=== PATIENT | female | born 1985 | race Caucasian/White ===

== ENCOUNTER 2016-07-14 08:05 | Day surgery (SDC) | payer OTHER ==
[~2016-07-14] VITALS: Ht 157.5 cm; Wt 84.3 kg
[2016-07-14] VITALS (7 sets, daily range): BP systolic 102–131; BP diastolic 48–67; PULSE 70–84; RESP 16–23; O2SAT 97–100
[2016-07-14] MEDS ORDERED: Lidocaine PF 1% 30 mL Inj ONE (08:06)
[2016-07-14] MEDS ORDERED: Propofol 10,000 mCg/mL 20 mL Inj ONE (08:06)
[2016-07-14] MEDS ORDERED: MetoCLOpramide 5 mg/mL 2 mL Inj ONE (08:06)
[2016-07-14] MEDS ORDERED: EPHEDrine/NS 5 mg/mL 5 mL Syringe ONE (08:06)
[2016-07-14] MEDS ORDERED: Dexamethasone 4 mg/mL Inj ONE (08:06)
[2016-07-14] MEDS ORDERED: Ondansetron 2 mg/mL 2 mL Inj ONE (08:06)
[2016-07-14] MEDS ORDERED: fentaNYL-PF 50 mCg/mL 2 mL Inj ONE (08:06)
[2016-07-14] MEDS: Lactated Ringer's 1,000 ML IV SCH ×2 (08:24→11:32)
[2016-07-14] MEDS ORDERED: Lactated Ringer's 1,000 ML IV SCH (10:51)
[2016-07-14] MEDS ORDERED: Lactated Ringer's 500 ML IV PRN (10:51)
[2016-07-14] MEDS ORDERED: MetoCLOpramide 5 mg/mL 2 mL Inj IVPUSH PRN (10:55)
[2016-07-14] MEDS ORDERED: Labetalol 5 mg/mL 4 mL Inj IV PRN (10:55)
[2016-07-14] MEDS ORDERED: Dexamethasone 4 mg/mL Inj IVPUSH PRN (10:55)
[2016-07-14] MEDS ORDERED: Atropine 0.4 mg/mL Inj IVPUSH PRN (10:55)
[2016-07-14] MEDS ORDERED: fentaNYL-PF 50 mCg/mL 2 mL Inj IVPUSH PRN (10:55)
[2016-07-14] MEDS ORDERED: Phenylephrine 10,000 mCg/mL Inj IVPUSH PRN (10:55)
[2016-07-14] MEDS ORDERED: HYDROmorphone 1 mg/mL Inj IVPUSH PRN (10:55)
[2016-07-14] MEDS ORDERED: Ondansetron 2 mg/mL 2 mL Inj IVPUSH PRN (10:55)
[2016-07-14] MEDS ORDERED: EPHEDrine Sulfate 50 mg/mL Inj IVPUSH PRN (10:55)
--- NOTE | 2016-07-14 11:21 | PCM.HPANE ---
Patient Data Date of Service: Jul 14, 2016 Surgeon Admitting Provider: Attending Provider:Reba Sparks MD Primary Care Physician:Abel Other Provider:Denise Heart Anesthesia Reason for Visit Vaginal Cyst Ht/WT & BMI Height (Feet): 5 Height (Inches): 2 Weight (Kilograms): 84.3 Body Mass Index 34.00 Allergies Coded Allergies: No Known Allergies (Verified Allergy, Unknown, 02/22/14) Past Anesthesia History Anesthesia History: Denies:: Abnormal Airway, Anesthesia Reactions (epidural for delivery), Difficult Intubation, Fam Anesthesia Reaction Diabetes History Hx Diabetes?: No MRSA MRSA: No Medications Hypertension Medication: No Home Meds Incl Beta Aryan: No Discontinued Reported Medications Iron &Iron Asp Gly/Fa/Mv,Min38 (Iron Tablet)1 Each Tablet1 Each PO DAILY 01/27/13 Discontinued Scripts Docusate Sodium (Colace)100 Mg Veyscik131 Mg PO DAILY #30 CAPSULE Prov:BERTHA SHELBY DO 03/18/16 Ibuprofen 600 Mg Xytnwt661 Mg PO Q6H PRN For Mild Pain #40 TABLET Prov:BERTHA SHELBY DO 03/18/16 Ciprofloxacin 500 Mg/5 Ml Helena.mc.fkd571 Mg PO BID 5 Days Ref 0 Prov:Joss Holt DO 02/23/14 History History of ENT Problems?: No HEENT History: Denies:: Abnormal Airway Cataracts Difficult Intubation Dysphagia Glaucoma Hearing Problem Sinus Problem TMJ Teeth Condition: Missing Teeth Hx of Heart Problems?: No Cardiovascular History: Denies:: AICD Abdominal Aortic Aneurism Atrial Fibrillation Edema Heart Murmur Hypertension Irregular Heartbeat Pacemaker Peripheral Vascular Rheumatic Fever Hx of Respiratory Problem?: No Respiratory History: Denies:: Asthma COPD Emphysema Oxygen Administration Pneumonia Pulmonary Embolism Tuberculosis Use of C-PAP Machine Use of Inhalers / NEBS Hx Neurologic Problems?: No Neurological History: Denies:: CVA Dizziness Headaches Multiple Sclerosis Parkinson's Disease Seizures TIA Hx of GI Problems?: No Gastrointestinal History: Denies:: Cirrhosis Gall Bladder Disease Gastroesphageal Reflux Gastrointestinal Bleeding Heartburn Hepatitis Hiatal Hernia Liver Disease Rectal Bleeding Hx of Problems?: No Genitourinary History: Denies:: Kidney Stones Urinary Tract Infection HX of Peritoneal Dialysis: No Female Hx: Denies:: Currently (CURRENTLY 4 MO OLD) Skin History: Denies:: History Skin Disorders? Pressure Ulcers Hx Musculoskeletal Problems?: No Musculoskeletal History: Denies:: Back Injury Fibromyalgia Myasthenia Gravis Osteoarthritis Systemic Lupus Hx of Psycho/Social Problems?: No Psycho Social History: Denies:: Anxiety Hx Depression Hx Surgeries?: No Hx Any Other Health Problems?: Yes Other History: Denies:: Cancer Thyroid Disease History Blood Transfusions: Positive for:: Accept Blood Products? Denies:: Blood Transfusions Hx Diabetes: No Hx Alcohol Use: NoHx Substance Use: No Smoking Status: Never Smoker Have You Smoked inLast 12 mo: No Stop/Bang Treated for Sleep Apnea?: No Do You Have a CPAP Machine?: No S-Snoring: Do You Snore Loudly: No T-Tired: feel tired, fatigued: No O-Obsered: Observed not breath: No P-Blood Pressure: treated: No B- Body Mass Index > 35 kg/m2: No A- Age over 50: No N- Neck Large Circumference: No G- Gender Male: No SILVANO Total Score: 0 Risk Assessment Category Category 1A: Patient has history of documented sleep apnea, and HAS NOT received any narcotic, sedative or anesthesia administration during this stay. Category 1B: Patient has history of documented sleep apnea, and HAS received any narcotic , sedative or anesthesia administration during this stay Category 2: Patient has SUSPECTED Obstructive Sleep Apnea, and HAS received any narcotic , sedative or anesthesia administration during this stay. Category 3: Patient has SUSPECTED Obstructive Sleep Apnea and HAS NOT received narcotic, sedative or anesthesia administration during this stay. Category 4: Outpatient in Procedural Areas with known sleep apnea or who screen positive for High Risk via the STOP/BANG questionnaire. Exam Exam Vital Signs Vital Signs Date Time Temp Pulse Resp B/P Pulse Ox O2 Delivery O2 Flow Rate FiO2 07/14/16 08:40 36.1 70 16 102/53 97 Room Air General Appearance: Alert, Oriented X3, Cooperative HEENT/AIRWAY: MP 3, Neck Movement (OK, short TM distance) Lungs: Clear to Auscultation, Normal Air Movement Heart: Regular Rate/Rhythm, Normal S1, Normal S2 Meds/Labs/Diagnostics Admission Meds Current Medications Lactated Ringer's (Lr) 1,000 ml @ 120 mls/hr Q8H20M IV Last administered on t 08:24; Start 07/14/16 at 05:00; Stop 07/14/16 at 13:19 Plan Impression Patient chart reviewed, patient interviewed and anesthestic plan with risks, benefits, and alternatives discussed, and informed consent obtained. NPO Status: 07/13/16 ASA Physical Status: ASA2 Mod Systemic Disease (obesity) Anesthetic Plan: GA Bene/Risks/Altern/Consents: Yes HP Complete Prior to Induction: Yes Chino Lilly MD Jul 14, 2016 10:49
[2016-07-14] MEDS ORDERED: Lidocaine 1%-Epi 1:100,000 50 mL Inj INFILTRATE ONE (11:54)
[2016-07-14] MEDS ORDERED: Lidocaine 1%/Epi 1:100,000 30 mL MDV INFILTRATE ONE (11:54)
[2016-07-14] MEDS ORDERED: oxyCODONE-Acetamin 5-325 mg Tablet PO PRN (12:40)
[2016-07-14] MEDS ORDERED: HYDROcodone-APAP 5-325 mg Tablet PO PRN (12:40)
--- NOTE | 2016-07-14 12:40 | PCM.ANEP1 ---
Post Anesthesia Phase 1 PACU Phase 1 Assessment Date of Service: Jul 14, 2016 Vital Signs Vital Signs Date Time Temp Pulse Resp B/P Pulse Ox O2 Delivery O2 Flow Rate FiO2 07/14/16 12:35 84 16 120/48 100 Simple Mask 7 07/14/16 12:32 36.2 131/55 07/14/16 08:40 36.1 70 16 102/53 97 Room Air Anesthetic Administered: GA Level of Alertness: Sleepy, easy to arouse GREENE's with Equal Strength: Yes Pain: No Nausea or Vomiting: No Oxygen Delivery: Simple Mask Lungs: Normal Air Movement Chino Lilly MD Jul 14, 2016 12:40
--- NOTE | 2016-07-14 12:44 | PCM.DIGYN ---
Surgical Discharge Instruction Dates of Hospitalization Date of Hospital Admission Providers Admitting Physician: Primary Care Physician: Nopcp Attending Physician: Reba Sparks MD Diagnosis at Time of Discharge Diagnosis at time of discharge vaginal cystectomy vaginal cyst Post-operative diagnosis vaginal cyst vaginal cystectomy Problems: Dressing and Incisional Care Hygiene: May shower, NO bathtub, hot tub or whirlpool Additional Instructions Discharge Instructions please call office or go to ER if heavy vaginal bleeding, severe abdominal pain , foul smelling discharge, fever more than 100.4 No sex and nothing in vaginal for 2 weeks Follow Up Plan Follow Up Plan 2 weeks Follow-up Provider (F9): Reba Sparks MD Follow-up appointment: Weeks (2) Call your provider for: Fever, Chills, Shortness of breath, Heavy vaginal bleeding, Increasing pain Reba Sparks MD Jul 14, 2016 12:44
--- NOTE | 2016-07-14 13:37 | PCM.ANEP2 ---
Post Anesthesia Evaluation ASA/CMS Post Anesthesia Date of Service: Jul 14, 2016 VS in Patient's Normal Range?: Yes Resp Stable; Airway Patent?: Yes CV Function & Hydration Stable: Yes Mental Status Recovered?: Yes Pain control Satisfactory?: Yes N/V Control Satisfactory?: Yes Chino Lilly MD Jul 14, 2016 13:37
--- NOTE | 2016-07-14 14:10 | OP ---
[address] [address] OPERATIVE REPORT PATIENT: CRISTOPHER CODY : 1985 MR#: [id number] ADMIT: 07/14/2016 JOB ID: [id number] DATE OF SURGERY: 07/14/2016 SURGEON: Reba Sparks MD. PREOPERATIVE DIAGNOSIS(ES): Vaginal cyst. POSTOPERATIVE DIAGNOSIS(ES): Vaginal cyst. INDICATION FOR PROCEDURE: Vaginal cyst which is symptomatic. This is a 31-year-old female. She had a vaginal delivery three months ago. She went to office for feeling of discomfort in vagina. During examination, it was noticed there was a vaginal cyst from her posterior vaginal wall, about 4-5 cm. The base of the cyst was about 2 cm. It was about 34 cm above her introitus. At that time, decision was made for vaginal cystectomy under anesthesia. Patient understood there is risk of infection, bleeding, injury to organs around including the rectum, bowels, major vessels, nerves. Informed consent signed. The patient was transferred to operating room after anesthesia was noted to be adequate. She was placed in dorsal lithotomy position. She was prepared and draped in normal sterile fashion. Retractor inserted to vagina to expose the posterior wall. The cyst was re-examined under anesthesia. The cyst was about 4-5 cm dilated, thin wall, inserted on the midline on the top. The base was about 2-3 cm. At this time, 1% lidocaine with epinephrine was inserted to the base of the vaginal cyst. Then, incision was placed on both sides of the cyst close to the base to the vaginal wall. Tried to dissect the cyst off without rupture, but unfortunately, the cyst was ruptured during the maneuver and the clear fluid was noticed. At this time, the vaginal wall was grasped by Allis clamp. The vaginal wall was removed together with piece of vaginal tissue. The specimen was sent for Pathology. The vaginal base was examined. There was no remnant of cyst wall left. Then, the vaginal wall opening was closed by several [id number] sutures by 2-[address]-1 needle. Hemostasis confirmed after the sutures. At this time, rectal examination was performed. Confirmed intact rectal mucosa and also confirmed there is no remnant cyst left. The patient tolerated the procedure well. All instrument, needles, laps and gauzes counted and correct twice. The patient was transferred to recovery room in stable condition. She will be discharged home today.
--- NOTE | 2016-07-14 14:15 | DIS ---
[address] [address] DISCHARGE SUMMARY PATIENT: CRISTOPHER CODY : 1985 MR#: [id number] ADMIT: 07/14/2016 JOB ID: [id number] DIS: 07/14/2016 This is a 31-year-old female. She came in today for a scheduled vaginal cystectomy. The procedure was not complicated. Plan to discharge patient home after the patient is able to ambulate well, voiding well and her pain is well controlled. The patient is instructed that if there is heavy vaginal bleeding, severe abdominal pain, foul-smelling discharge, fever more than 100.4, she will call office or go to the ED for evaluation. The patient is instructed to schedule appointment two weeks after the procedure for followup. Motrin 600 mg q.6 hours p.o. p.r.n. for pain prescribed with 30 pills, no refills.
--- NOTE | 2016-07-16 11:11 | PATH ---
SURGICAL PATHOLOGY Attending Physician:Reba Sparks MD CASE STATUS: Signed Out PATIENT NAME: CRISTOPHER CODY PID: [id number] : 1985 DATE COLLECTED:07/14/2016 20:50 SPECIMEN: CYST, NOS CLINICAL HISTORY: 1). VAGINAL CYST-POSTERIOR FINAL DIAGNOSIS: Vaginal Cyst, Posterior, Excision: Benign epithelial cysts, most consistent with mullerian cyst. No evidence of malignancy or dysplasia. ICD10: L72.0 GROSS DESCRIPTION: The specimen is received in one formalin filled container labeled with the patient's name, sublabeled "vaginal cyst-posterior" and consists of an irregularly-shaped vo-l[place] portion of tissue which measures 1.6 x 1.1 x 0.9 CM. The specimen is inked, sectioned into 5 total pieces and entirely submitted in one cassette. 07/14/2016 DAC MICRO DESCRIPTION: Sections demonstrate a submucosal cyst lined by 1-2 layers of flattened cuboidal epithelium. The submucosa of the vaginal squamous epithelium shows dense chronic inflammation. There is no evidence of malignancy or dysplasia. ICD-9 CODES: CPT CODES: 1: 88313 Electronically Signed Out Dung Geronimo MD [facility] [address], [place] [address] Technical component performed at [facility], [facility] [address], [place], [address]
== END 2016-07-14 23:59 | disposition home or self-care (01) ==
LOC: SAS 08:05
PROVIDERS: ATTEND Obstetrics & Gynecology
DX: L72.0 Epidermal cyst (principal); Q52.4 Other congenital malformations of vagina
CPT/HCPCS: 57135; J1100; J2250; J2405; J2765; J3010; J7120